=== PATIENT | male | born 1970 | race Native Hawaiian/Other Pacific Islander ===

== ENCOUNTER → 2022-01-14 | Outpatient (CLI) | payer OTHER | LOC: CT 21:21 → RAD 21:40 → CT 21:40 → EDSTATUS 01-15 14:41 | PROVIDERS: ATTEND Student in an Organized Health Care Education/Training Program | DX: R79.89 Other specified abnormal findings of blood chemistry (principal) | CPT/HCPCS: Q9963 ==